=== PATIENT | female | born 1995 ===

== ENCOUNTER 2022-06-02 03:04 | Inpatient (IN) | payer SELFPAY ==
[2022-06-02] MEDS ORDERED: Sodium Chloride 0.9% 20 ML SDV IV PRN (03:43)
[2022-06-02] MEDS ORDERED: Tranexamic Acid 1,000 MG in Sodium Chloride 0.9% 100 ML IV PRN (03:43)
[2022-06-02] MEDS ORDERED: Misoprostol 200 MCG Tab PO PRN (03:43)
[2022-06-02] MEDS ORDERED: Sodium Chloride 0.9% 2.5 ML Syringe FLUSH PRN (03:43)
[2022-06-02] MEDS ORDERED: Methylergonovine 0.2 MG/1 ML Amp IM PRN (03:43)
[2022-06-02] MEDS ORDERED: Carboprost Tromethamine 250 MCG/1 ML Amp IM PRN (03:43)
[2022-06-02] MEDS ORDERED: Sodium Chloride 0.9% 10 ML Syringe FLUSH PRN (03:43)
[2022-06-02] MEDS ORDERED: Lidocaine 1% 50 ML MDV INJECT PRN (03:43)
[2022-06-02] MEDS ORDERED: Water For Irrigation,Sterile 1,000 ML Container IRR PRN (03:43)
[2022-06-02] MEDS ORDERED: Ondansetron 4 MG/2 ML SDV IVPUSH PRN (03:43)
[2022-06-02] MEDS ORDERED: Butorphanol 1 MG/ML SDV IVPUSH PRN (03:43)
[2022-06-02] MEDS ORDERED: Oxytocin/0.9 % Sodium Chloride 30 UNIT/500 ML BAG IV SCH ×2 (03:45→05:45)
[2022-06-02] MEDS ORDERED: Ampicillin 2 GM in Sodium Chloride 0.9% 100 ML IV ONE (04:00)
[2022-06-02] MEDS: Lactated Ringers 1,000 ML IV SCH ×4 (04:27→19:53)
[2022-06-02] MEDS ORDERED: Misoprostol 25 MCG (1/4 of 100 MCG) Tab VAG PRN (05:42)
[2022-06-02] MEDS ORDERED: Terbutaline 1 MG/ML SDV SUBCUT PRN (05:42)
[2022-06-02] MEDS ORDERED: Phenylephrine HCl In 0.9% NaCl 1 MG/10 ML Vial IVPUSH PRN (07:36)
[2022-06-02] MEDS ORDERED: ePHEDrine 50 MG/ML SDV IVPUSH PRN ×2 (07:36)
[2022-06-02] MEDS ORDERED: Phenylephrine HCl In 0.9% NaCl 1 MG/10 ML Vial IVPUSH SCH (07:45)
[2022-06-02] MEDS ORDERED: Ropivacaine HCl/PF 400 MG in Premix Bag 1 BAG EPIDUR SCH (07:45)
[2022-06-02] MEDS: Ampicillin 1 GM in Sodium Chloride 0.9% 50 ML IV SCH ×4 (08:26→20:47)
[2022-06-02] MEDS ORDERED: Dexmedetomidine 200 MCG/2 ML SDV ONE (13:08)
[2022-06-02] MEDS ORDERED: oxyCODONE 5 MG Tab PO PRN (23:04)
[2022-06-02] MEDS ORDERED: Bisacodyl 10 MG Supp RECTAL PRN (23:04)
[2022-06-02] MEDS ORDERED: Witch Hazel Medicated Pads 40/Jar TOP PRN (23:04)
[2022-06-02] MEDS ORDERED: Benzocaine/Menthol 20%-0.5% Spray 78 GM Cannister TOP PRN (23:04)
[2022-06-02] MEDS ORDERED: Ibuprofen 400 MG Tab PO PRN (23:04)
[2022-06-02] MEDS ORDERED: Docusate Sodium 100 MG Cap PO PRN (23:04)
[2022-06-02] MEDS ORDERED: Lanolin 100% Cream 7 GM Tube TOP PRN (23:04)
[2022-06-02] MEDS ORDERED: Acetaminophen 500 MG Tab PO PRN (23:04)
[2022-06-03] MEDS: Acetaminophen 500 MG Tab PO PRN ×2 (01:00→08:55)
[2022-06-03] MEDS: Ibuprofen 800 MG Tab PO PRN ×2 (01:01→08:54)
[2022-06-04] MEDS: Acetaminophen 500 MG Tab PO PRN (04:36)
[2022-06-04] MEDS: Ibuprofen 800 MG Tab PO PRN (04:37)
[2022-06-04] MEDS ORDERED: Measles, Mumps & Rubella Vaccine 0.5 ML SDV SUBCUT ONE (10:00)
== END 2022-06-04 13:24 | disposition home or self-care (01) | DRG 807 ==
LOC: MW.OBCHECK 03:04 → MW.OB 03:06 → MW.OBCHECK 03:42 → MW.OB 03:43 → OBSVTOIN 22:15 → MW.OB 06-03 02:00
PROVIDERS: ADMIT Obstetrics & Gynecology; ATTEND Obstetrics & Gynecology
PROC: 10D07Z6 Extraction of Products of Conception, Vacuum, Via Natural or Artificial Opening (ICD-10-PCS; principal; 2022-06-02)
PROC: 0KQM0ZZ Repair Perineum Muscle, Open Approach (ICD-10-PCS; 2022-06-02)
PROC: 3E033VJ Introduction of Other Hormone into Peripheral Vein, Percutaneous Approach (ICD-10-PCS; 2022-06-02)
PROC: 3E0P7VZ Introduction of Hormone into Female Reproductive, Via Natural or Artificial Opening (ICD-10-PCS; 2022-06-02)
PROC: 3E0R3BZ Introduction of Anesthetic Agent into Spinal Canal, Percutaneous Approach (ICD-10-PCS; 2022-06-02)
PROC: 00HU33Z Insertion of Infusion Device into Spinal Canal, Percutaneous Approach (ICD-10-PCS; 2022-06-02)
PROC: 3E01340 Introduction of Influenza Vaccine into Subcutaneous Tissue, Percutaneous Approach (ICD-10-PCS; 2022-06-04)
DX: O42.02 Full-term premature rupture of membranes, onset of labor within 24 hours of rupture (principal); Z37.0 Single live birth; Z20.822 Contact with and (suspected) exposure to COVID-19; Z3A.38 38 weeks gestation of pregnancy; Z23 Encounter for immunization; O70.1 Second degree perineal laceration during delivery
CPT/HCPCS: 36415; 51702; 59025; 59409; 82803; 85014; 85018; 85027; 86592; 86850; 86900; 86901; 90471; 90707; A9270-GY; J0290; J0595; J2001; J2590; J3490; J7050; J7120; U0002

== ENCOUNTER 2024-03-11 00:10 | Inpatient (IN) | payer SELFPAY ==
[2024-03-11] MEDS ORDERED: Lidocaine 1% 50 ML MDV INJECT PRN (00:39)
[2024-03-11] MEDS ORDERED: Misoprostol 200 MCG Tab PO PRN ×2 (00:39→11:39)
[2024-03-11] MEDS ORDERED: Sodium Chloride 0.9% 20 ML SDV IV PRN (00:39)
[2024-03-11] MEDS ORDERED: Sodium Chloride 0.9% 2.5 ML Syringe FLUSH PRN (00:39)
[2024-03-11] MEDS ORDERED: Sodium Chloride 0.9% 10 ML Syringe FLUSH PRN (00:39)
[2024-03-11] MEDS ORDERED: Ondansetron 4 MG/2 ML SDV IVPUSH PRN (00:39)
[2024-03-11] MEDS ORDERED: Water For Irrigation,Sterile 1,000 ML Container IRR PRN (00:39)
[2024-03-11] MEDS ORDERED: Tranexamic Acid in NACL,ISO-OS 1,000 MG in Premix Bag 1 BAG IV PRN (00:39)
[2024-03-11] MEDS ORDERED: Carboprost Tromethamine 250 MCG/1 mL Vial IM PRN (00:39)
[2024-03-11] MEDS ORDERED: Methylergonovine 0.2 MG/1 ML Amp IM PRN (00:39)
[2024-03-11] MEDS ORDERED: Oxytocin/0.9 % Sodium Chloride 30 UNIT/500 ML BAG IV SCH ×2 (00:45→03:15)
[2024-03-11] MEDS: Lactated Ringers 1,000 ML IV SCH (01:21)
[2024-03-11] MEDS: Ampicillin 2 GM in Sodium Chloride 0.9% 100 ML IV ONE (01:21)
[2024-03-11 01:36] LABS: HEMATOCRIT 36.9 % (37.0-47.0); HEMOGLOBIN 12.6 g/dL (12.0-16.0); MEAN CORPUSCULAR HEMOGLOBIN 29.8 pg (28.0-32.0); MEAN CORPUSCULAR HGB CONC 34.1 g/dL (32.0-36.0); MEAN CORPUSCULAR VOLUME 87.2 fL (83.0-99.0); MEAN PLATELET VOLUME 12.1 fL (9.4-12.3); PLATELET COUNT,PLT 150 K/uL (150-400); RED BLOOD CELL COUNT 4.23 M/uL (4.10-5.30); WHITE BLOOD CELL COUNT,WBC 9.62 K/uL (3.9-11.3)
[2024-03-11] MEDS ORDERED: Terbutaline 1 MG/ML SDV SUBCUT PRN (03:32)
[2024-03-11] MEDS: Oxytocin/0.9 % Sodium Chloride 30 UNIT/500 ML BAG IV SCH (04:30)
[2024-03-11] MEDS: Butorphanol 2 MG/ML SDV IVPUSH PRN (04:40)
[2024-03-11] MEDS: Ampicillin 1 GM in Sodium Chloride 0.9% 50 ML IV SCH (04:43)
[2024-03-11] MEDS: fentaNYL 50 MCG/ML SDV IVPUSH ONE (07:34)
[2024-03-11] MEDS ORDERED: Ropivacaine HCl/PF 200 ML ONE (09:52)
[2024-03-11] MEDS ORDERED: Bupivacaine 0.5% 10 ML SDV ONE (09:52)
[2024-03-11] MEDS ORDERED: Phenylephrine HCl In 0.9% NaCl 1 MG/10 ML Syringe ONE (09:52)
[2024-03-11] MEDS ORDERED: Phenylephrine HCl In 0.9% NaCl 1 MG/10 ML Syringe IVPUSH PRN (10:15)
[2024-03-11] MEDS ORDERED: dexmedeTOMIDine HCl 200 MCG/2 ML SDV EPIDUR SCH (10:15)
[2024-03-11] MEDS ORDERED: ePHEDrine 50 MG/ML SDV IVPUSH PRN (10:15)
[2024-03-11] MEDS ORDERED: ePHEDrine 50 MG/ML SDV IM PRN (10:15)
[2024-03-11] MEDS ORDERED: Bupivacaine 0.5% 10 ML SDV INJECT ONE (10:15)
[2024-03-11] MEDS: Ropivacaine HCl/PF 400 MG in Premix Bag 1 BAG EPIDUR SCH (10:40)
[2024-03-11] MEDS ORDERED: Docusate Sodium 100 MG Cap PO PRN (11:37)
[2024-03-11] MEDS ORDERED: Simethicone 80 MG Tab.Chew PO PRN (11:37)
[2024-03-11] MEDS ORDERED: diphenhydrAMINE 50 MG Cap PO PRN (11:37)
[2024-03-11] MEDS: Benzocaine/Menthol 20%-0.5% Spray 78 GM Cannister TOP PRN (17:21)
[2024-03-11] MEDS: Witch Hazel Medicated Pads 40/Jar TOP PRN (17:21)
[2024-03-11] MEDS: Ibuprofen 800 MG Tab PO PRN (18:28)
[2024-03-11] MEDS: Acetaminophen 500 MG Tab PO PRN (18:29)
[2024-03-11 18:30] LABS: PH,UMBILICAL ARTERIAL 7.269 (7.18-7.38); PH,UMBILICAL VENOUS 7.282 (7.25-7.45)
[2024-03-12 06:09] LABS: HEMATOCRIT 31.7 % (37.0-47.0); HEMOGLOBIN 10.8 g/dL (12.0-16.0); MEAN CORPUSCULAR HEMOGLOBIN 30.1 pg (28.0-32.0); MEAN CORPUSCULAR HGB CONC 34.1 g/dL (32.0-36.0); MEAN CORPUSCULAR VOLUME 88.3 fL (83.0-99.0); MEAN PLATELET VOLUME 12.7 fL (9.4-12.3); PLATELET COUNT,PLT 137 K/uL (150-400); RED BLOOD CELL COUNT 3.59 M/uL (4.10-5.30); WHITE BLOOD CELL COUNT,WBC 13.64 K/uL (3.9-11.3)
[2024-03-12] MEDS: Levothyroxine 50 MCG Tab PO ONE (10:21)
[2024-03-12] MEDS: Lanolin 100% Cream 7 GM Tube TOP PRN (20:44)
[2024-03-13] MEDS: Levothyroxine 50 MCG Tab PO SCH (08:23)
== END 2024-03-13 13:00 | disposition home or self-care (01) | DRG 806 ==
LOC: MW.OBCHECK 00:10 → MW.OB 00:11 → MW.OBCHECK 00:39 → OBSVTOIN 15:06 → MW.OB 18:27
PROVIDERS: ADMIT Obstetrics & Gynecology; ATTEND Obstetrics & Gynecology Obstetrics
PROC: 10E0XZZ Delivery of Products of Conception, External Approach (ICD-10-PCS; principal; 2024-03-11)
PROC: 0KQM0ZZ Repair Perineum Muscle, Open Approach (ICD-10-PCS; 2024-03-11)
PROC: 10907ZC Drainage of Amniotic Fluid, Therapeutic from Products of Conception, Via Natural or Artificial Opening (ICD-10-PCS; 2024-03-11)
PROC: 3E0R3BZ Introduction of Anesthetic Agent into Spinal Canal, Percutaneous Approach (ICD-10-PCS; 2024-03-11)
PROC: 00HU33Z Insertion of Infusion Device into Spinal Canal, Percutaneous Approach (ICD-10-PCS; 2024-03-11)
DX: O42.02 Full-term premature rupture of membranes, onset of labor within 24 hours of rupture (principal); D62 Acute posthemorrhagic anemia; Z37.0 Single live birth; O99.824 Streptococcus B carrier state complicating childbirth; O99.284 Endocrine, nutritional and metabolic diseases complicating childbirth; E03.9 Hypothyroidism, unspecified; O70.1 Second degree perineal laceration during delivery; O99.02 Anemia complicating childbirth; Z3A.39 39 weeks gestation of pregnancy
CPT/HCPCS: 01967; 36415; 51702; 59025; 59409; 82803; 85027; 86592; 86850; 86900; 86901; A9270-GY; J0290; J0595; J0665; J2371; J2590; J2795; J3010; J3490; J7120